=== PATIENT | female | born 1970 | race Two or more races ===

== ENCOUNTER → 2020-12-31 08:00 | Outpatient (CLI) | payer OTHER ==
[~2020-12-31 08:00] MED LIST: SINGULAIR10 MG PO; XYZAL5 MG PO
== END | disposition home or self-care (01) ==
LOC: LAB 08:00 → ADM 11:45 → CIR.AMB 01-07 11:45 → EDSTATUS 01-07 11:45 → CIR.AMB 01-07 17:30
PROVIDERS: ATTEND Colon & Rectal Surgery
DX: K60.1 Chronic anal fissure (principal); Z20.822 Contact with and (suspected) exposure to COVID-19